=== PATIENT | female | born 1980 | race African-American/Black ===

== ENCOUNTER 2018-09-05 20:22 | Inpatient (IN) | payer OTHER ==
[~2018-09-05] VITALS: Ht 170.2 cm; Wt 95.2 kg
[~2018-09-05 20:22] MED LIST: BACTRIM DS TAB1 EACH PO; HYDROCHLOROTHIA25 M2 PO; NORVASC10 MG PO; PHENERGAN 25 MG25 M1 PO; POTASSIUM20 PO; PRILOSEC20 MG PO; PROMS25 WY RECTAL; ZOFRAN ODT4 MG PO
[2018-09-05] MEDS ORDERED: TYLENOL325 M1 PO (20:34)
[2018-09-05] MEDS ORDERED: ALPRAZOLAM 0.0.25 M1 PO (20:35)
[2018-09-05] MEDS ORDERED: KAPVAY0.1 MG PO (20:38)
[2018-09-05] MEDS ORDERED: PEPCID20 MG PO (20:39)
[2018-09-05] MEDS ORDERED: HYDRALAZINE 2525 MG PO (20:41)
[2018-09-05] MEDS ORDERED: NORCO 5-325 TA1 EAC1 PO (20:43)
[2018-09-05] MEDS ORDERED: ATIVAN0.5 MG INJECTION (20:44)
[2018-09-05] MEDS ORDERED: MAGNESIUM1 GM/100 M IV (20:46)
[2018-09-05] MEDS ORDERED: REGLAN 10 MG TA10 MG PO (20:50)
[2018-09-05] MEDS ORDERED: LOPRESSOR5 MG/5 ML IV (20:53)
[2018-09-05] MEDS ORDERED: MORPHINE SULFAT10 MG INJECTION (20:55)
[2018-09-05] MEDS ORDERED: ZOFRAN4 MG PO (20:56)
[2018-09-05] MEDS ORDERED: K-DUR 20 MEQ T20 MEQ PO (20:57)
[2018-09-05] MEDS ORDERED: COMPAZINE10 MG PO (21:00)
[2018-09-05 21:01] VITALS: BP 174/108
[2018-09-06 00:06] LABS: CALCIUM 8.5 mg/dL (8.5-10.1); CREATININE 1.1 mg/dL (0.6-1.0); MAGNESIUM 1.3 mg/dL (1.8-2.4)
[2018-09-06 00:11] LABS: POTASSIUM 2.5 mmol/L (3.5-5.1)
[2018-09-06] MEDS ORDERED: PROTONIX40 M2 PO (01:13)
[2018-09-06] MEDS ORDERED: IBUPROFEN 800800 M1 PO (01:17)
[2018-09-06 04:06] VITALS: BP 122/72
[2018-09-06 05:51] LABS: CREATININE 1.1 mg/dL (0.6-1.0); MAGNESIUM 2.2 mg/dL (1.8-2.4)
[2018-09-06 08:21] VITALS: BP 120/60
--- NOTE | 2018-09-06 08:30 | NUR ---
Received transfer patient from [facility] at 2145. Pt is resting in bed. AOX4. VSS. Gave hydralazine onetime for elevated BP. Pt is on clear liquid and tolerating them well. Hasnt had an episode on N/V. Skin is intact. IV on GIGI with NS @125. Lungs are clear. Hyperactive bowel sounds. Shes up at nadeem. No identified needs at the moment. Call light within reach. Will continue to monitor.
--- NOTE | 2018-09-06 15:11 | NUR ---
Assumed pt care this am, pt denies any pain and no nausea and vomiting has been noted. Pt is up at nadeem and stable on her feet, ambulating the halls. Pt is able to use the toilet. Pt requested for her alprazolam informed Dr. Sharma, meds given. Oral potassium was given as well. IV site infiltrated, all medication converted to oral. Fluid intake encouraged. Transitioned to a regualr diet and is tolerating well. VS stable, no sings of distress or verbalizationed noted at this time. POC followed
[2018-09-06 15:29] VITALS: BP 146/88
[2018-09-06 20:44] VITALS: BP 135/93
--- NOTE | 2018-09-07 03:14 | NUR ---
ASSESSMENT: PT REMAIN ALERT AND ORIENT TIMES FOUR. UP AD TOÑA TO THE BR. C/O GENERALIZED ABD PAIN SECONDARY TO ENDOMETRIOSIS. PT REQUESTED TYLENOL AND XANAX. VSS, AFEBRILE. AT APPROXIMATELY 0200 PT REQUESTED TO HAVE A HEATING PAD, WHICH SHE STATE THAT SHE ASKED FOR EARLIER DURING THE DAY. A WARM BLANKET WAS APPLIED TO THE PT'S ABD AND ACCORDING TO THE PT, IT WAS SOOTHING AND FELT FINE. PT STATE THAT SHE WANTS TO GO HOME IN THE AM SINCE NOTHING IS BEING DONE FOR HER. PT PLEASANT, BUT IS READY TO GO HOME. NO EMESIS, TOLERATING PO INTAKE OF A REG DIET. SLOW PROGRESS, WILL CONTINUE TO MONITOR.
[2018-09-07 03:31] VITALS: BP 149/92
[2018-09-07 07:32] VITALS: BP 129/89
[2018-09-07] MEDS ORDERED: LIORESAL 10 MG10 MG PO (08:28)
[2018-09-07 09:15] VITALS: BP 129/89
[2018-09-07] MEDS ORDERED: XANAX 0.25 MG0.25 MG PO (10:04)
[2018-09-07 10:21] VITALS: BP 129/89
[2018-09-07 10:49] VITALS: BP 129/89
== END 2018-09-07 10:54 | disposition home or self-care (01) | DRG 918 ==
LOC: 4W 20:22
PROVIDERS: Nurse Practitioner Family; ADMIT Hospitalist
DX: T40.7X1A Poisoning by cannabis (derivatives), accidental (unintentional), initial encounter (principal); N17.9 Acute kidney failure, unspecified; K31.89 Other diseases of stomach and duodenum; I10 Essential (primary) hypertension; K21.9 Gastro-esophageal reflux disease without esophagitis; F12.90 Cannabis use, unspecified, uncomplicated; F41.9 Anxiety disorder, unspecified; R11.10 Vomiting, unspecified; Z88.8 Allergy status to other drugs, medicaments and biological substances; Z79.899 Other long term (current) drug therapy; Z90.49 Acquired absence of other specified parts of digestive tract; Z82.49 Family history of ischemic heart disease and other diseases of the circulatory system; Y92.89 Other specified places as the place of occurrence of the external cause
CPT/HCPCS: 10047